=== PATIENT | male | born 1990 | race Hispanic/Latino ===

== ENCOUNTER 2020-10-31 05:41 | Emergency (ER) | payer OTHER ==
[2020-10-31] MEDS ORDERED: LIDOCAINE 2% MPF 5 ML VIAL ONE (06:10)
[2020-10-31] MEDS ORDERED: IBUPROFEN 400 MG TAB ONE (06:19)
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
--- NOTE | 2020-10-31 06:24 | EDPHYS ---
Physician Documentation [facility] Name: Carlos Bruner Age: 30 yrs Sex: Male : 1990 Arrival Date: 10/31/2020 Time: 05:42 Bed 17 Private MD: ED Physician Ronnie Mari HPI: 10/31 06:01 This 30 yrs old Male presents to ER via EMS with complaints of head injury with tw4 laceration. 06:01 The patient or guardian reports a laceration, 15 cm(s). The complaints affect the tw4 forehead. Context of injury: The problem was sustained at home, resulted from. Onset: The symptoms/episode began/occurred today. Associated signs and symptoms: The patient has no apparent associated signs or symptoms. Severity of symptoms: At their worst the symptoms were moderate. The patient has not experienced similar symptoms in the past. Historical: - Allergies: 05:47 PENICILLINS; jm8 - Home Meds: 05:47 sertraline oral oral [Active]; 8 - PMHx: 05:47 Depression; 8 - PSHx: 05:47 None; 8 - Immunization history:: Adult Immunizations up to date. - Social history:: Smoking status: unknown. ROS: 06:01 Constitutional: Negative for fever, chills, and weight loss, Cardiovascular: Negative tw4 for chest pain, palpitations, and edema, Respiratory: Negative for shortness of breath, cough, wheezing, and pleuritic chest pain, Abdomen/GI: Negative for abdominal pain, nausea, vomiting, diarrhea, and constipation, Back: Negative for injury and pain, MS/Extremity: Negative for injury and deformity, Skin: Negative for injury, rash, and discoloration, Neuro: Negative for headache, weakness, numbness, tingling, and seizure. Exam: 06:02 Constitutional: This is a well developed, well nourished patient who is awake, alert, tw4 and in no acute distress. Chest/axilla: Normal chest wall appearance and motion. Nontender with no deformity. No lesions are appreciated. Cardiovascular: Regular rate and rhythm with a normal S1 and S2. No gallops, murmurs, or rubs. Normal PMI, no JVD. No pulse deficits. Respiratory: Lungs have equal breath sounds bilaterally, clear to auscultation and percussion. No rales, rhonchi or wheezes noted. No increased work of breathing, no retractions or nasal flaring. Abdomen/GI: Soft, non-tender, with normal bowel sounds. No distension or tympany. No guarding or rebound. No evidence of tenderness throughout. 06:02 Head/face: Noted is a laceration(s), that is deep, 15 cm(s), of the forehead. 06:02 Skin: injury, abrasion(s), moderate sized abrasion noted, 10 cm(s), of the left cheek. Vital Signs: 05:43 BP 133 / 82; Pulse 76; Resp 16; Temp 98.7; Pulse Ox 98% on R/A; Weight 76.66 kg; Height jm8 5 ft. 0 in. (152.40 cm); Pain 10/10; 05:43 Body Mass Index 33.01 (76.66 kg, 152.40 cm) jm8 [place] Coma Score: 06:01 Eye Response: spontaneous(4). Verbal Response: oriented(5). Motor Response: obeys tw4 commands(6). Total: 15. 06:33 Eye Response: spontaneous(4). Verbal Response: oriented(5). Motor Response: obeys tw4 commands(6). Total: 15. Laceration: 06:00 Wound Repair of 15.2cm ( 6in ) subcutaneous laceration to forehead. Distal tw4 neuro/vascular/tendon intact. Anesthesia: Local anesthetic administered with 5 mls of 1% lidocaine. Wound prep: Moderate cleansing by nurse. Skin closed with 6 1-0 Nerissa using staple gun. Dressed with Bacitracin, bandaid. Patient tolerated well. MDM: 05:46 Patient medically screened. tw4 06:33 Differential diagnosis: Contusion of Hematoma on Laceration of. Data reviewed: vital tw4 signs, nurses notes. Data interpreted: Pulse oximetry: Interpretation: normal. Counseling: I had a detailed discussion with the patient and/or guardian regarding: the historical points, exam findings, and any diagnostic results supporting the discharge/admit diagnosis. Special discussion: Based on the patient's history, exam and DX evaluation, there is no indication for emergent intervention or inpatient TX. It is understood by the patient/guardian that if the SXs persist or worsen they need to return immediately for re-evaluation. I discussed with the patient/guardian in detail that at this point there is no indication for admission to the hospital. It is understood, however, that if the symptoms persist or worsen the patient needs to return immediately for re-evaluation. 10/31 06:04 Order name: Suture Tray at Bedside; Complete Time: 06:04 jm8 Administered Medications: 05:57 Drug: Lidocaine (1 %) 5 mg Route: Infiltration; Site: affected area; jm8 06:03 Drug: Ibuprofen 800 mg Route: PO; jm8 06:37 Follow up: Response: No adverse reaction; Pain is decreased jm8 Disposition: 10/31/20 06:24 Discharged to Home. Impression: Laceration of muscle and tendon of head, Contusion of other part of head. - Condition is Stable. - Discharge Instructions: Contusion, Laceration Care, Adult, Head Injury, Pediatric, [id number]. - Medication Reconciliation Form, Thank You Letter, Antibiotic Education, Prescription Opioid Use form. - Follow up: Private Physician; When: 5 - 6 days; Reason: Wound Recheck, Recheck today's complaints, Continuance of care, Re-evaluation by your physician. - Problem is new. - Symptoms have improved. Signatures: Ronnie Mari MD MD tw4 Timothy Smith RN RN jm8 Corrections: (The following items were deleted from the chart) 06:03 06:01 Constitutional: This is a well developed, well nourished patient who is awake, tw4 alert, and in no acute distress. Head/Face: Normocephalic, atraumatic. Chest/axilla: Normal chest wall appearance and motion. Nontender with no deformity. No lesions are appreciated. Cardiovascular: Regular rate and rhythm with a normal S1 and S2. No gallops, murmurs, or rubs. Normal PMI, no JVD. No pulse deficits. Respiratory: Lungs have equal breath sounds bilaterally, clear to auscultation and percussion. No rales, rhonchi or wheezes noted. No increased work of breathing, no retractions or nasal flaring. Abdomen/GI: Soft, non-tender, with normal bowel sounds. No distension or tympany. No guarding or rebound. No evidence of tenderness throughout. Back: No spinal tenderness. No costovertebral tenderness. Full range of motion. MS/ Extremity: Pulses equal, no cyanosis. Neurovascular intact. Full, normal range of motion. Neuro: Awake and alert, GCS 15, oriented to person, place, time, and situation. Cranial nerves II-XII grossly intact. Motor strength 5/5 in all extremities. Sensory grossly intact. Cerebellar exam normal. Normal gait. tw4 06:36 06:24 10/31/2020 06:24 Discharged to Home. Impression: Laceration of muscle and tendon jm8 of head; Contusion of other part of head. Condition is Stable. Forms are Medication Reconciliation Form, Thank You Letter, Antibiotic Education, Prescription Opioid Use. Follow up: Private Physician; When: 5 - 6 days; Reason: Wound Recheck, Recheck today's complaints, Continuance of care, Re-evaluation by your physician. Problem is new. Symptoms have improved. tw4
[2020-10-31 06:43] VITALS: BP 133/82; TEMP 98.7; O2SAT 98
== END 2020-10-31 06:36 | disposition home or self-care (01) ==
LOC: ER 05:41
PROC: 0JQ10ZZ Repair Face Subcutaneous Tissue and Fascia, Open Approach (ICD-10-PCS; principal; 2020-10-31)
DX: S01.81XA Laceration without foreign body of other part of head, initial encounter (principal); W26.8XXA Contact with other sharp object(s), not elsewhere classified, initial encounter; Y92.149 Unspecified place in prison as the place of occurrence of the external cause; Z88.0 Allergy status to penicillin; F32.9 Major depressive disorder, single episode, unspecified
CPT/HCPCS: 99283